=== PATIENT | female | born 1975 | race Hispanic/Latino ===

== ENCOUNTER → 2023-06-16 11:56 | Outpatient (REF) | payer OTHER, SELFPAY | LOC: WDC 11:56 | PROVIDERS: ATTENDING PHYSICIAN Internal Medicine; FAMILY PHYSICIAN Nurse Practitioner Adult Health | DX: Z12.31 Encounter for screening mammogram for malignant neoplasm of breast (principal) | CPT/HCPCS: 77063; 77067 ==

== ENCOUNTER → 2024-01-13 09:56 | Outpatient (REF) | payer OTHER, SELFPAY | LOC: CLINIC 09:56 | PROVIDERS: ATTENDING PHYSICIAN Internal Medicine; FAMILY PHYSICIAN Internal Medicine | DX: Z12.31 Encounter for screening mammogram for malignant neoplasm of breast (principal); E11.9 Type 2 diabetes mellitus without complications | CPT/HCPCS: 36415; 83036 ==

== ENCOUNTER → 2024-04-16 09:49 | Outpatient (REF) | payer OTHER, SELFPAY ==
[2024-04-16 10:48] LABS: Microalbumin, Random Urine <0.6 mg/dl (0.6-1.7)
[2024-04-16 11:07] LABS: ALT (SGPT) 114 U/L (0-35); AST (SGOT) 88 U/L (14-36); Albumin 4.6 g/dl (3.5-5.0); Alkaline Phosphatase 131 U/L (38-126); Blood Urea Nitrogen 13 mg/dl (7-17); Calcium 9.3 mg/dl (8.4-10.2); Carbon Dioxide 25 mmol/L (22-30); Chloride 102 mmol/L (98-107); Glucose 118 mg/dl (70-99); Potassium 4.1 mmol/L (3.5-5.1); Sodium 135 mmol/L (135-145); Total Bilirubin 0.7 mg/dl (0.2-1.3); Total Protein 8.3 g/dl (6.3-8.2); eGFR > 60.00
[2024-04-16 12:12] LABS: Glycohemoglobin (HgbA1c) 6.8 % (4.0-5.6)
== END ==
LOC: CLINIC 09:49
PROVIDERS: ATTENDING PHYSICIAN Nurse Practitioner Adult Health
DX: E11.9 Type 2 diabetes mellitus without complications (principal)
CPT/HCPCS: 36415; 80053; 82043; 82570; 83036

== ENCOUNTER → 2024-08-18 11:38 | Outpatient (REF) | payer OTHER, SELFPAY ==
[2024-08-18 12:47] LABS: Glycohemoglobin (HgbA1c) 6.1 % (4.0-5.6)
[2024-08-18 14:09] LABS: ALT (SGPT) 51 U/L (0-35); AST (SGOT) 48 U/L (14-36); Albumin 4.2 g/dl (3.5-5.0); Alkaline Phosphatase 111 U/L (38-126); Blood Urea Nitrogen 12 mg/dl (7-17); Carbon Dioxide 24 mmol/L (22-30); Chloride 108 mmol/L (98-107); Direct Bilirubin 0.1 mg/dl (0.0-0.4); Glucose 108 mg/dl (70-99); Potassium 4.3 mmol/L (3.5-5.1); Sodium 141 mmol/L (135-145); Total Bilirubin 0.7 mg/dl (0.2-1.3); Total Protein 7.7 g/dl (6.3-8.2); eGFR > 60.00
[2024-08-19 19:22] LABS: Hepatitis B Surface Antigen Negative (Negative)
[2024-08-19 19:41] LABS: Hepatitis B Core Ab, Total Negative (Negative); Hepatitis B Surface Antibody Negative; Hepatitis C Antibody Negative (Negative)
== END ==
LOC: CLINIC 11:38
PROVIDERS: ATTENDING PHYSICIAN Nurse Practitioner Adult Health
DX: K76.0 Fatty (change of) liver, not elsewhere classified (principal); R74.8 Abnormal levels of other serum enzymes; E11.9 Type 2 diabetes mellitus without complications
CPT/HCPCS: 36415; 80053; 82248; 83036; 86704; 86706; 86803; 87340

== ENCOUNTER → 2024-08-30 19:39 | Outpatient (REF) | payer OTHER, SELFPAY | LOC: WDC 19:39 | PROVIDERS: ATTENDING PHYSICIAN Nurse Practitioner Adult Health | DX: Z12.31 Encounter for screening mammogram for malignant neoplasm of breast (principal) | CPT/HCPCS: 77063; 77067 ==

== ENCOUNTER → 2025-01-13 11:36 | Outpatient (REF) | payer OTHER, SELFPAY ==
[2025-01-13 13:26] LABS: ALT (SGPT) 43 U/L (0-35); AST (SGOT) 46 U/L (14-36); Albumin 4.6 g/dl (3.5-5.0); Alkaline Phosphatase 105 U/L (38-126); Blood Urea Nitrogen 10 mg/dl (7-17); Calcium 9.4 mg/dl (8.4-10.2); Carbon Dioxide 23 mmol/L (22-30); Chloride 105 mmol/L (98-107); Glucose 105 mg/dl (70-99); Potassium 4.3 mmol/L (3.5-5.1); Sodium 136 mmol/L (135-145); Total Protein 8.7 g/dl (6.3-8.2); eGFR > 60.00
[2025-01-13 14:18] LABS: Glycohemoglobin (HgbA1c) 6.0 % (4.0-5.9)
== END ==
LOC: CLINIC 11:36
PROVIDERS: ATTENDING PHYSICIAN Nurse Practitioner Adult Health
DX: E11.9 Type 2 diabetes mellitus without complications (principal); E74.810 Glucose transporter protein type 1 deficiency
CPT/HCPCS: 36415; 80053; 83036